=== PATIENT | female | born 1955 | race Caucasian/White ===

== ENCOUNTER 2020-06-28 07:22 | Outpatient (CLI) | payer MEDICARE, SELFPAY ==
--- NOTE | ~2020-06-28 | US_ITS ---
EXAMINATION: US right upper quadrant DATE: 06/28/2020 07:52 INDICATION: Abnormal liver function tests. TECHNIQUE: Multiple grayscale and Doppler ultrasound images of the abdomen were obtained. COMPARISON: None FINDINGS: The visualized portion of the pancreas is normal. The liver is normal without focal lesion. No liver surface nodularity. There is normal flow in main portal vein. The gallbladder is normal in size. No gallstones or gallbladder wall thickening. There was no sonographic Jay sign. The common duct is normal and measures 4 mm. IMPRESSION: 1. Normal right upper quadrant ultrasound. Reviewed, dictated and finalized at location B.
== END 2020-06-28 07:23 | disposition home or self-care (01) ==
PROVIDERS: PCP Family Medicine; Visit Provider Nurse Practitioner Family
DX: R74.8 Abnormal levels of other serum enzymes (principal)
CPT/HCPCS: 76705

== ENCOUNTER 2022-08-27 15:13 | Outpatient (CLI) | payer MEDICARE, SELFPAY ==
--- NOTE | ~2022-08-27 | DEXA_ITS ---
Bone Density Report Name: AVE JENSEN Age: 66 Sex: Female Ethnicity: White Date of : 1955 Indication: postmenopausal; screening for osteoporosis; height loss; Referring Provider: RADHA, APPLE Damico Study: Bone densitometry was performed. Exam Date: August 27, 2022 Accession number: [id number] Bone Density: Region BMD T-score Z-score Classification AP Spine(L1-L4) 0.639 -3.7 -1.7 Osteoporosis Femoral Neck (Left) 0.526 -2.9 -1.2 Osteoporosis Total Hip (Left) 0.736 -1.7 -0.3 Osteopenia Femoral Neck (Right) 0.545 -2.7 -1.0 Osteoporosis Total Hip (Right) 0.772 -1.4 0.0 Osteopenia Total Hip Mean 0.754 -1.6 -0.2 Osteopenia World Health Organization criteria for BMD impression classify patients as: Normal (T-score at or above -1.0), Osteopenia (T-score between -1.0 and -2.5), or Osteoporosis (T-score at or below -2.5). 10-year Fracture Risk: FRAX not reported because: Some T-score for Spine Total or Hip Total or Femoral Neck at or below -2.5 Clinical Information Provided by Patient: Has used the following medications: Vitamin D, Calcium Patient maximum height was 61.5 Menopause Age: 46 Onset of menses at age 11 Number of children 6 Impression: The patient has osteoporosis, based on the Total Spine T-score. Discussion: INCREASED RISK OF FRACTURE. BONE DENSITY IS UNDESIRABLY LOW AT ONE OR MORE SKELETAL SITES, CONSISTENT WITH POSTMENOPAUSAL OSTEOPOROSIS. This patient's lowest T-score meets the World Health Organization's (WHO) criteria for osteoporosis at one or more sites (T-score -2.5 or below). In untreated patients, the risk of osteoporotic fracture increases approximately two-fold for each 1.0 SD decrease in T-score. Low bone density is not the only risk factor for fracture; also consider factors such as patient's age, frailty or poor health, risk of falling, risk of injury, previous osteoporotic fracture, family history of osteoporosis, cigarette smoking, low body weight, etc. Not everyone with low bone mineral density has osteoporosis; osteomalacia and other metabolic bone disorders should also be considered. Patients who have osteoporosis should be evaluated for specific diseases and conditions (secondary causes) that may cause or contribute to bone loss. The [place] Association of Clinical Endocrinologists (AACE) and National Osteoporosis Foundation (NOF) recommend pharmacologic intervention for all postmenopausal women whose T-score is in this range. The patient should follow a healthful lifestyle (good nutrition with adequate calcium and vitamin D, and appropriate weight-bearing exercise). Follow-Up: Consider a repeat BMD and Vertebral Fracture Assessment (VFA) exam in 2 years or sooner if medically necessary, to reassess this patient's status. Reported by: JENN on 08/27/2022
== END 2022-08-27 15:14 | disposition home or self-care (01) ==
PROVIDERS: PCP Family Medicine; Visit Provider Nurse Practitioner Family
DX: Z78.0 Asymptomatic menopausal state (principal); M85.89 Other specified disorders of bone density and structure, multiple sites; M81.0 Age-related osteoporosis without current pathological fracture
CPT/HCPCS: 77080

== ENCOUNTER 2024-09-28 14:36 | Outpatient (CLI) | payer MEDICARE, SELFPAY ==
--- NOTE | ~2024-09-28 | DEXA_ITS ---
Bone Density Report Name: AVE JENSEN Age: 68 Sex: Female Ethnicity: White Date of : 1955 Indication: postmenopausal; screening for osteoporosis; height loss; Referring Provider: APPLE GARCIA Study: Bone densitometry was performed. Exam Date: September 28, 2024 Accession number: [id number] Bone Density: Region BMD T-score Z-score Classification AP Spine(L1, L2, L3) 0.772 -2.2 -0.1 Osteopenia Femoral Neck (Left) 0.601 -2.2 -0.4 Osteopenia Total Hip (Left) 0.733 -1.7 -0.2 Osteopenia Femoral Neck (Right) 0.552 -2.7 -0.8 Osteoporosis Total Hip (Right) 0.783 -1.3 0.2 Osteopenia Total Hip Mean 0.758 -1.5 0.0 Osteopenia World Health Organization criteria for BMD impression classify patients as: Normal (T-score at or above -1.0), Osteopenia (T-score between -1.0 and -2.5), or Osteoporosis (T-score at or below -2.5). 10-year Fracture Risk: FRAX not reported because: Some T-score for Spine Total or Hip Total or Femoral Neck at or below -2.5 Clinical Information Provided by Patient: Has used the following medications: Fosamax (i.e. alendronate), Vitamin D, Calcium Patient maximum height was 61.5 Menopause Age: 46 No regular weight bearing exercise Onset of menses at age 11 Number of children 6 Impression: The patient has osteoporosis, based on the Right Femoral Neck T-score. Discussion: INCREASED RISK OF FRACTURE. BONE DENSITY IS UNDESIRABLY LOW AT ONE OR MORE SKELETAL SITES, CONSISTENT WITH POSTMENOPAUSAL OSTEOPOROSIS. This patient's lowest T-score meets the World Health Organization's (WHO) criteria for osteoporosis at one or more sites (T-score -2.5 or below). In untreated patients, the risk of osteoporotic fracture increases approximately two-fold for each 1.0 SD decrease in T-score. Low bone density is not the only risk factor for fracture; also consider factors such as patient's age, frailty or poor health, risk of falling, risk of injury, previous osteoporotic fracture, family history of osteoporosis, cigarette smoking, low body weight, etc. Not everyone with low bone mineral density has osteoporosis; osteomalacia and other metabolic bone disorders should also be considered. Patients who have osteoporosis should be evaluated for specific diseases and conditions (secondary causes) that may cause or contribute to bone loss. The [place] Association of Clinical Endocrinologists (AACE) and National Osteoporosis Foundation (NOF) recommend pharmacologic intervention for all postmenopausal women whose T-score is in this range. The patient should follow a healthful lifestyle (good nutrition with adequate calcium and vitamin D, and appropriate weight-bearing exercise). Follow-Up: Consider a repeat BMD and Vertebral Fracture Assessment (VFA) exam in 2 years or sooner if medically necessary, to reassess this patient's status. Reported by: KHALIF on 09/28/2024 3:26:00 PM. Reviewed, dictated and finalized at location A.
--- OUTSIDE RECORDS SUMMARY | 2024-09-28 15:02 | XMS_ITS | Clinical Summary ---
Author Organization [facility] Address [address] [place] [address] Care Team Providers Care Alliances Consultant Name Role Phone Samia Quintanilla MD Primary Care Provider Allergies Active Allergy Reactions Criticality Noted Date Comments Penicillins Itching Low 11/21/2015 Medications lisinopril (PRINIVIL,ZESTRI L) 10 mg tablet TK 1 T PO QD 5 03/24/2018 Active pravastatin (PRAVACHOL) 20 mg tablet 5 02/20/2018 Active omega 2-vgl-hxq-fish oil (FISH OIL) 100-160-1,000 mg capsule Active multivitamin tabletIndication s:Vitamin Deficiency Prevention Active cholecalciferol (VITAMIN D-3) 1,000 unit Active flaxseed oil oil Act herbie alendronate (FOSAMAX) 70 mg tablet TAKE 1 TABLET BY MOUTH WEEKLY 06/12/2023 Active fenofibrate (TRIGLIDE) 160 mg tablet 06/24/2023 Active Active Problems Problem Noted Date Diagnosed Date Well woman exam 07/04/2023 Assessment & Plan (07/04/2023 12:44 PM CDT): Cervix- pap obtained today; last cotest pap if normal Breast- normal exam findings STI screen- Not indicated control- NA HCM Screening History Date of Last Pap if Known: 04/08/19,normal History of Abnormal Paps: No Ever had a mammogram?: Yes Date of Mammogram: 04/2023 Mammogram result: Normal Ever had a colonoscopy?: (cologuard 05/10/2020) Date of Colonoscopy: cologuard 05/10/20 Ever had a bone-density test?: Yes Date of bone-density test: about a year ago with pcp Bone-density test result: Abnormal Thyroid disorder screening 10/30/2011 Encounter for preventive health examination 10/18 Surgical History Surgery Date Site/Laterality Comments NO PAST SURGERIES Medical History Medical History Date Comments Hypertension Family History Medical History Relation Name Comments Hypertension Father Hypertension - (Added by TW Conv) Breast cancer Mother Breast Cancer - (Added by TW Conv) Diabetes Mother Diabetes Mellit us - (Added by TW Conv) Hypertension Mother Hypertension - (Added by TW Conv) Relation Name Status Comments Father Alive Mother Alive Social History Tobacco Use Types Packs/Day Years Used Date Smoking Tobacco: Never Smokeless Tobacco: Never Alcohol Use Standard Drinks/Week Comments No 0 (1 standard drink = 0.6 oz pur e alcohol) AUDIT-C Answer Date Recorded Frequency of Alcohol Consumption Not on file 12/29/2020 Average Number of Drinks Not on file 021 Q3: How often do you have si x or more drinks on one occasion? 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 Gender Identity Not on file Sexual Orientation Not on file Obstetrics History Para Term AB IAB SAB Ectopic Multiple Livin g Live Births 7 6 6 1 1 6 6 Date Outcome GA Total Labor Labor/2nd/3rd Weight Sex Type Anes PTL Elizabeth A1 A5 Name Clin SAB 1978 Term Vag-S pont Living 1981 Term Vag-S pont Living 1982 Term Vag-S pont Living 1984 Term Vag-S pont Living 1986 Term Vag-S pont Living 1987 Term Vag-S pont Living Last Filed Vital Signs Vital Sign Reading Time Taken Comments Blood Pressure 135/84 07/04/2023 11:37 AM CDT Pulse - - Temperature - - Respiratory Rate - - Oxygen Saturation - - Inhaled Oxygen Concentration - - Weight 70.2 kg (154 lb 12.8 oz) 024 11:37 AM CDT Height 157.5 cm (5' 2) 07/04/2023 11:3 7 AM CDT Body Mass Index 28.31 07/04/2023 11:37 AM CDT Plan of Treatment Health Maintenance Due Date Last Done Comments Colon Cancer Screening-Colonoscopy 1955 Depression Screening 1955 Fall Risk Assessment 1955 Hepatitis C Screening 1955 Osteoporosis Screening-Bone Density Scan 1955 Hepatitis B Screening 12/28/1971 Pneumococcal vaccine 65+ (1 of 1 - PCV) 12/28/2003 Zoster Vaccine (1 of 2) 12/28/2003 Well Visit 65+ 12/29/2021 12/29/2020, 03/21, 04/02/2018 Influenza Vaccine (#1) 2024 11/14/2015 Breast Cancer Screening-Mammogram 06/08/2025 06/08/2024, 05/05/2023, 03/27/2022, Additional history exists DTaP/Tdap/Td Vaccine (2 - Td or Tdap) 11/13/2025 11/14/2015 Procedures Procedure Name Priority Date/Time Associated Diagnosis Comments SCREENING MAMMOGRAM BILATERAL W ERNESTO Schedule Routine, Read Routine (OP Routine) 06/08/2024 10:44 AM CDT Screening mammogram, encounter for from Last 3 Months or Most Recently Relevant to Health Maintenance Results * Screening Mammogram Bilateral W Ernesto (06/08/2024 10:44 AM CDT) Anatomical Region Laterality Modality Breast Bilateral Mammography Narrative 06/08/2024 12:00 PM CDT Mammogram Technique: Bilateral Digital Breast Tomosynthesis, Bilateral C-view 2D Screening mammogram. Views obtained: bilateral craniocaudal and bilateral mediolateral oblique. Computer Aided Detection was performed. Mammogram Findings: The present examination has been compared to prior imaging studies performed at [facility] on 12/13/2020, 03/27/2022 and 05/05/2023. There are scattered areas of fibroglandular density. There is no suspicious abnormality in either breast. Impression: There is no mammographic evidence of malignancy. Annual screening mammography is recommended. OVERALL FINAL ASSESSMENT: BI-RADS CATEGORY 1: Negative. Procedure Note Shira Cerna MD - 06/08/2024 Mammogram Technique: Bilateral Digital Breast Tomosynthesis, Bilateral C-view 2D Screening mammogram. Views obtained: bilateral craniocaudal and bilateral mediolateral oblique. Computer Aided Detection was performed. Mammogram Findings: The present examination has been compared to prior imaging studies performed at [facility] on 12/13/2020, 03/27/2022 and 05/05/2023. There are scattered areas of fibroglandular density. There is no suspicious abnormality in either breast. Impression: There is no mammographic evidence of malignancy. Annual screening mammography is recommended. OVERALL FINAL ASSESSMENT: BI-RADS CATEGORY 1: Negative. us Self Screening Mammogram IMG MAMMO PROCEDURES Fi nal Result from Last 3 Months or Most Recently Relevant to Health Maintenance Insurance [facility] MEDICARE [facility] Address: [facility] [id number] [place] [id number] [employer] OPEN ACCESS MEDICARE [facility] MEDICARE ADVANTAGE [facility] [place] [address] [address] [facility] MEDICARE Care Teams Alliances Consultant Relationship Specialty Start Date End Date Samia Quintanilla MD PCP - General Family Practice 01/28/22
--- OUTSIDE RECORDS SUMMARY | 2024-09-28 15:02 | XMS_ITS | Clinical Summary ---
Author Organization [facility] Address [address] [place] [id number] Care Team Providers Care Elevator Constructor Helper Name Role Phone Carmina Fischer FLOOR COVERING PRINTER Primary Care Provider [phone] Allergies Active Allergy Reactions Criticality Noted Date Comments Penicillins Unknown 09/13/2020 Shellfish-Derived Products Nausea and Vomiting 09/13/2020 Medications lisinopril 10 MG tablet Take 10 mg by mouth daily. 0 Active pravastatin 20 MG tablet TK 1 T PO QD. STOP ATORVASTATIN 0 Active methylPREDNISol one, GINA, 4 MG tablet 6 TABLETS ON DAY ONE, 5 TABLETS DAY TWO, 4 TABLETS DAY THREE, 3 TABLETS DAY FOUR, 2 TABLETS DAY FIVE, AND 1 TABLET DAY SIX 1 each 1 Active HYDROcodone-stephanie taminophen 5-325 MG tabletIndicatio ns:Acute Pain < 7 Day Supply Take 1 tablet by mouth every 6 (six) hours as needed for Pain. Indications: Acute Pain < 7 Day Supply 10 tablet 1 Active Social History Tobacco Use Types Packs/Day Years Used Date Smoking Tobacco: Never Smokeless Tobacco: Never Alcohol Use Standard Drinks/Week Comments Not Currently 0 (1 standard drink = 0.6 oz pur e alcohol) Comments No Sex and Gender Information Value Date Recorded Sex Assigned at Not on file Legal Sex Female 5:28 PM CDT Gender Identity Not on file Sexual Orientation Not on file Last Filed Vital Signs Vital Sign Reading Time Taken Comments Blood Pressure 137/75 10/25/2020 4:47 PM CDT Pulse 89 10/25/2020 4:47 PM CDT Temperature 36.4 C (97.6 F) 10/25/2020 4:47 PM CDT Respiratory Rate 18 10/25/2020 4:47 PM CDT Oxygen Saturation 98% 10/25/2020 4:47 PM CDT Inhaled Oxygen Concentration - - Weight 63.5 kg (140 lb) 10/25/2020 4:47 PM CDT Height 157.5 cm (5' 2) 10/25/2020 4:47 PM CDT Body Mass Index 25.61 10/25/2020 4:47 PM CDT Plan of Treatment Health Maintenance Due Date Last Done Comments Colorectal Cancer Screening Colonoscopy (10 Years) 1955 Hepatitis C 12/28/1971 DTaP, Tdap and Td Vaccines ( 1 - Tdap) 1972 Mammogram Screening 1993 Pneumococcal Vaccine: 50+ Years (1 of 1 - PCV) 12/28/2003 Zoster Vaccines (1 of 2) 12/28/2003 Annual Medicare Wellness Visit 2018 Dexa Scan (General) 2018 COVID-19 Vaccine (2023-2 5 season) 2023 04/25/2020, 03/23/2020 RSV Immunization or 60+ Years (1 - 1-dose 75+ series) 2028 Meningococcal B Vaccine Aged Out No l onger eligible based on patient's age to complete this topic Meningococcal Vaccine Aged Out No cristobal trina eligible based on patient's age to complete this topic RSV Immunizations Under 20 Months Aged Out No longer eligible b ased on patient's age to complete this [place] [address] MED REPLACE [facility] MEDICARE Care Teams Elevator Constructor Helper Relationship Specialty Start Date End Date Carmina Fischer FNP PCP - General Nurse Practitioner Family 09/13/20
== END 2024-09-28 14:37 | disposition home or self-care (01) ==
LOC: ANHIMG 14:37
PROVIDERS: PCP Family Medicine; Visit Provider Nurse Practitioner Family
DX: M81.0 Age-related osteoporosis without current pathological fracture (principal); M85.89 Other specified disorders of bone density and structure, multiple sites; Z78.0 Asymptomatic menopausal state
CPT/HCPCS: 77080

== ENCOUNTER 2024-12-02 11:11 | Outpatient (CLI) | payer MEDICARE, SELFPAY ==
--- OUTSIDE RECORDS SUMMARY | 2024-12-02 13:13 | XMS_ITS | Clinical Summary ---
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 There are [...] compared to prior imaging studies performed at [facility] on 12/13/2020, 03/27/2022 and 05/05/2023. There are scattered areas of fibroglandular density. There is no suspicious abnormality in either breast. Impression: There is no mammographic evidence of malignancy. Annual screening mammography is recommended. OVERALL FINAL ASSESSMENT: BI-RADS CATEGORY 1: Negative. us Self Screening Mammogram IMG MAMMO PROCEDURES Fi nal Result from Last 3 Months or Most Recently Relevant to Health Maintenance Insurance [facility] Address: [facility] [id number] [place] [phone] [employer] OPEN ACCESS MEDICARE [facility] Address: [address] [address] [place] [address] [facility] MEDICARE ADVANTAGE [facility] [address] [facility] MEDICARE Care Teams Spark Tester Relationship Specialty Start Date End Date Samia Quintanilla MD PCP - General Family Practice 01/28/22
[2024-12-02 19:38] LABS: Hematocrit 46.1 % (37.0-47.0); Hemoglobin 14.7 g/dL (12.0-15.0); Immature Granulocyte Percent A 0.4 % (0-0.5); Lymphocytes Absolute Auto 2.94 K/mm3 (0.9-3.2); Mean Corpuscular HGB Conc 31.9 g/dl (32-36); Mean Corpuscular Hemoglobin 29.6 pg (26-34); Mean Corpuscular Volume 92.9 fl (80-100); Nucleated Red Blood Cells Absolute Auto 0.000 K/mm3 (0.0-0.012); Nucleated Red Blood Cells Perc 0.0 % (0.0-0.2); Platelet Count Result 320 k/mm3 (150-375); Red Blood Count 4.96 M/mm3 (4.2-5.4); White Blood Count 10.4 K/mm3 (4.5-10.0)
[2024-12-02 20:31] LABS: Hemoglobin A1C 5.4 % (<5.7)
[2024-12-02 23:10] LABS: Alanine Aminotransferase 30 U/L (6-35); Albumin Level 4.3 g/dL (3.5-5.1); Alkaline Phosphatase 60 U/L (38-126); Anion Gap 6 mmol/L (4-12); Aspartate Amino Transferase 36 U/L (14-36); Bilirubin,Total 0.7 mg/dL (0.2-1.3); Blood Urea Nitrogen 17 mg/dL (7-17); Calcium 9.8 mg/dL (8.4-10.2); Carbon Dioxide 29 mmol/L (22-30); Chloride 98 mmol/L (98-107); Cholesterol 227 mg/dL (0-200); Estimated Glomerular Filt Rate > 60; Glucose 89 mg/dL (65-110); HDL Direct 47 mg/dL; Potassium 4.3 mmol/L (3.4-5.0); Sodium 133 mmol/L (137-145); Total Protein 7.5 g/dL (6.3-8.2); Triglycerides 179 mg/dL (<150)
== END 2024-12-02 11:12 | disposition home or self-care (01) ==
LOC: ANHGOSHLAB 11:12
PROVIDERS: PCP Family Medicine; Visit Provider Nurse Practitioner Family
DX: R73.03 Prediabetes (principal); I10 Essential (primary) hypertension; E78.5 Hyperlipidemia, unspecified
CPT/HCPCS: 36415; 80053; 80061; 83036; 85025